=== PATIENT | female | born 1950 | race Caucasian/White ===

== ENCOUNTER 2016-08-04 09:05 | Inpatient (IN) ==
--- NOTE | 2016-08-03 16:26 | Discharge Summary ---
<Kim Chamberlain - Last Filed: 08/03/16 16:24> Date of Encounter: 08/03/16 - Discharge Diagnosis (1) Arthritis of right hip Priority: Primary Status: Chronic (2) Hypertension Priority: Secondary Status: Chronic Qualifiers: Hypertension type: essential hypertension Qualified Code(s): I10 - Essential (primary) hypertension (3) Anxiety Priority: Secondary Status: Chronic - Discharge Medications Home Medications: ALPRAZolam [Xanax 1 MG Tablet] 1 mg PO HS PRN #5 tablet 08/04/16 [Rx] Aspirin Enteric Coated [Aspirin EC] 325 mg PO DAILY #21 tablet. 08/04/16 [Rx] Cholecalciferol (D-3) [Vitamin D] 1,000 unit PO DAILY 08/04/16 [History] Cyanocobalamin (Vitamin B-12) [Vitamin B-12] 1,000 mcg SL DAILY 08/04/16 [ History] Gabapentin [Neurontin] 300 mg PO HS #5 capsule 08/04/16 [Rx] Gluc/Juan-MSM#1/C/Michele/Quentin/Bor [Osteo Bi-Flex Caplet] 1 each PO DAILY 08/04/16 [ History] OxyCODONE Immed Rel [Roxicodone 5 MG] 5 - 10 mg PO Q6HR PRN #40 tablet 08/04/16 [Rx] Ubidecarenone [Co Q-10] 100 mg PO DAILY 08/04/16 [History] amLODIPine [Norvasc] 5 mg PO DAILY 08/04/16 [History] hydroCHLOROthiazide [Hydrochlorothiazide] 12.5 mg PO DAILY 08/04/16 [History] Allergies/Adverse Reactions: Allergies No Known Allergies Allergy (Verified 08/04/16 09:34) Primary care physician: Olga Lidia Orozco CNP - Patient Status Disposition: Transfer Inpatient Rehab Fac Condition: Good - Discharge Instructions Follow Up With: Olga Lidia Orozco CNP [Primary Care Provider] - Kim Chamberlain PAC [Physician Solutions Architect] - 08/17/16 1:40 pm Additional Instructions: Discharge Instructions: Total Hip Replacement Please call [facility] ([phone]), your Primary Care Physician, or report to the Emergency Room if you have any of the following symptoms: Nausea, vomiting, fever greater that 101.5, swelling, chest pain, shortness of breath, increased pain/redness/drainage/odor for your incision site, numbness/ tingling, or any other concerning symptoms. ACTIVITY:Weight-bearing as tolerated for 8 weeks with hip dislocation precautions that physical therapy taught you. You may progress as tolerated under the guidance of your physical therapist. You do not need to sleep with a pillow between your legs. You can also seep on the operative side or on your stomach. MEDICATIONS: Upon discharge resume your home medications. Take all the medications as prescribed. Take a stool softener if taking narcotic pain medications. Stool softeners are only effective if you drink enough fluids. Drink 6-8 glass of water or fluids a day, unless this is not allowed for another health problem. Despite using stool softeners, if you haven't had a bowel movement in 3 days, please switch to a gentle laxative. Gentle laxatives are sold over the counter. You should have a bowel movement within 24 hours, if not call the office. You will be discharged from the hospital with a prescription for pain medication. You are encouraged to decrease the use of narcotic pain medication as tolerated. Should you require a refill, please call the office. [facility] prescribes narcotic pain medication for only 4-6 weeks after surgery. If you require pain medication beyond this time period, you may be referred to your Primary Care Physician or to the Pain Clinic for further evaluation. Plan ahead for refills on pain medication as many narcotics either need to be picked up at the office or mailed. It is best to call 48-72 hours in advance of needing a prescription refill so you don't run out of medication. To help control the post-operative pain, you may take NSAIDs (Aleve,Advil, Motrin, ibuprofen, naprosyn) or Tylenol as prescribed on the bottle in addition to the pain medication. ANTICOAGULATION (blood thinners): Continue your Aspirin, Lovenox or Coumadin as prescribed to help prevent a blood clot in the leg or in the lungs. As long as your incision remains dry and you tolerate the NSAIDs (Aleve, Advil, Motrin, Ibuprofen, Naprosyn), it is OK to use the NSAIDS while you are taking your anticoagulation medication. Should your incision start to drain, stop the NSAID and contact our office. Common symptoms of blood clot in the legs include: localized pain, swelling, calf tenderness, redness or discoloration of the skin. Blood clot in the lung symptoms include: shortness of breath, rapid pulse, sweating, and chest pain that worsens with deep breathing, coughing up blood, lightheadedness, feelings of anxiety. If you experience any of these symptoms notify your physician immediately, go to the emergency room, or if having trouble breathing, call 911. WOUND CARE: Leave the dressing on for 7 to 10days. You may change the dressing if it is saturated greater than 50%. Do not get the dressing wet at anytime. Wash your hands with antibacterial soap, rinse and dry prior to any wound care. If you have lasha the visiting nurse or rehab facility can remove the stapes 10-14 days after surgery and place steri-strips across the wound. Leave the steri-strips in place until they fall off on their own. You may let water from the shower run on top of the steri-strips. If you do not have a visiting nurse or rehab facility, you will need to return to the office at 10-14 days for the lasha to be removed. If you have itching or redness around the dressing call the office. FOLLOW-UP: Please follow up with your surgeon in the orthopedic clinic in 6 weeks from the day of surgery. If you have lasha that need to be removed, you will need to come back to the office in 10-14 days from the day of surgery. - Hospital Course Hospital course: Ms. Salas is a 66 year old female - Time Spent with Patient Total time spent providing and/or coordinating discharge services: <Love Rodgers - Last Filed: 08/04/16 10:09> Date of Encounter: 08/04/16 Primary care physician: Olga Lidia Orozco CNP - Hospital Course Hospital course: Ms. Salas is a 66 year old female - Time Spent with Patient Total time spent providing and/or coordinating discharge services: <Amadeo Trammell - Last Filed: 08/09/16 16:59> Date of Encounter: 08/09/16 Time of Encounter: 16:58 - Discharge Diagnosis (1) Arthritis of right hip Priority: Primary Status: Chronic (2) Hypertension Priority: Secondary Status: Chronic Qualifiers: Hypertension type: essential hypertension Qualified Code(s): I10 - Essential (primary) hypertension (3) Anxiety Priority: Secondary Status: Chronic (4) Acute blood loss anemia Priority: Primary Status: Acute (5) Status post total hip replacement, right Priority: Primary Status: Acute Primary care physician: Olga Lidia Orozco CNP - Patient Status Functional capacity at discharge: uses cane/walker Overall status at discharge: patient is back to baseline - Hospital Course Hospital course: Ms. Salas is a 66 year old female Status post total hip replacement postoperative acute blood loss anemia requiring transfusion patient received antibiotics physical therapy discharge stable condition to ECF - Time Spent with Patient Total time spent providing and/or coordinating discharge services:
[2016-08-04] MEDS ORDERED: CeFAZolin Pre 2,000 MG/100 ML 2,000 MG/100 ML BAG IVPB ONE (09:24)
[2016-08-04] MEDS ORDERED: Ringers Solution, Lactated 1,000 ML IVC SCH ×2 (09:30→13:30)
--- NOTE | 2016-08-04 09:31 | History & Physical Report ---
Date of Encounter: 08/04/16 Time of Encounter: 09:31 24 Hour HP Update - Instructions Instructions: If the History and Physical is less than 30 days old and was completed prior to A.M. admission and or procedure and has NOT been updated on calendar day of procedure please complete this update prior to performing procedure. - Update Patient reports changes in Medical Condition: No Changes in examination, assessment, or condition: No Changes in Medication: No Preop tests/diagnostics Reviewed: Yes Surgery Remains Indicated: Yes Consent for Planned Operative Procedure(s) Verified: Yes - Pre-Operative Checklist Preoperative Checklist Indicated: No Prophylactic Antibiotic Ordered: Yes Is VTE Prophylaxis Indicated?: Yes
--- NOTE | 2016-08-04 10:04 | Anesthesia Evaluation PreOp ---
Date of Encounter: 08/04/16 Time of Encounter: 10:02 - Past History Planned Operation: r vimal Cardiac History: HTN Pulmonary History: Asthma (rare) LIME TRIMMER History: Other (anxiety, sciatica rle) Other Medical History: Denies Any Significant HX Anesthesia History: No Prior Anesthetic Complications, Past Anesthesia ( hysterect, bladder) Alcohol Use: occasionally Drug use: none Medications and Allergies ALPRAZolam [Xanax 1 MG Tablet] 1 mg PO HS PRN 08/04/16 [History] Cholecalciferol (D-3) [Vitamin D] 1,000 unit PO DAILY 08/04/16 [History] Cyanocobalamin (Vitamin B-12) [Vitamin B-12] 1,000 mcg SL DAILY 08/04/16 [ History] Gabapentin [Neurontin] 300 mg PO HS 08/04/16 [History] Gluc/Juan-MSM#1/C/Michele/Quentin/Bor [Osteo Bi-Flex Caplet] 1 each PO DAILY 08/04/16 [ History] Tramadol HCl [Ultram] 50 mg PO QID PRN 08/04/16 [History] Ubidecarenone [Co Q-10] 100 mg PO DAILY 08/04/16 [History] amLODIPine [Norvasc] 5 mg PO DAILY 08/04/16 [History] hydroCHLOROthiazide [Hydrochlorothiazide] 12.5 mg PO DAILY 08/04/16 [History] Allergies No Known Allergies Allergy (Verified 08/04/16 09:34) - Meds/Allergy Pre-op Review Medications Reviewed: Yes Allergies Reviewed: Yes Beta Blockers on Current Med List: No Anesthesia Results - Labs Laboratory Tests 07/28/16 07/28/16 07/28/16 11:04 11:04 11:04 Hgb 14.1 Hct 41.3 Plt Count 411 H PT 10.2 INR 1.0 APTT 31.5 Sodium 141 Potassium 4.1 Creatinine 0.76 - Imaging EKG: report reviewed (nsr) Anesthesia Exam O2 Sat Height 1.6 m Height 1.6 m Height 1.6 m Weight 61.689 kg Weight 61.689 kg Weight 61.689 kg O2 Sat by Pulse Oximetry 99 Vital Signs Temp Pulse Resp BP Pulse Ox 98.2 F 71 18 132/59 99 08/04/16 09:41 08/04/16 09:41 08/04/16 09:41 08/04/16 09:41 08/04/16 09:41 Height: 1.6 Weight: 62 NPO (# of Hours): >8 - HEENT Pupil (Motor): Pupils equal, EOMI Mallampati: II Teeth: Poor dentition Oral Opening: Greater than 3 - LIME TRIMMER LOC: Oriented LIME TRIMMER Motor: Normal RUE, Normal LUE, Normal RLE, Normal LLE, Normal Face LIME TRIMMER Sensory: Normal: RUE, LUE, RLE, LLE, Face - Cardiac Rhythm: Regular Murmur: None - Pulmonary Breath Sounds: bilateral Clear Respiratory Effort: Symmetrical Anesthesia Assess/Plan ASA Score: 2 Modified Denver Scale for Level of Consciousness: Cooperative, oriented, and tranquil Anesthetic Plan: General, Regional Monitoring Plan: Standard Monitors Recovery Plan: PACU
[2016-08-04] MEDS ORDERED: CloNIDine Patch 0.1 MG PATCH (WEEKLY) TD ONE (10:15)
[2016-08-04] MEDS ORDERED: *HR* Midazolam HCl 2 MG/2 ML VIAL ONE (11:42)
[2016-08-04] MEDS ORDERED: Lidocaine -MPF 2% 2 ML VIAL ONE (11:42)
[2016-08-04] MEDS ORDERED: *HR* Propofol 200 MG/20 ML VIAL IVP ONE (11:42)
[2016-08-04] MEDS ORDERED: *HR* FentaNYL (PF) 100 MCG/2 ML VIAL ONE ×2 (11:42→14:16)
[2016-08-04] MEDS ORDERED: Bupivacaine/Clonidine Syringe 1 EACH SYRINGE ONE (12:52)
[2016-08-04] MEDS ORDERED: Ondansetron 4 MG/2 ML VIAL ONE (13:15)
[2016-08-04] MEDS ORDERED: Dexamethasone 4 MG/ML VIAL ONE (13:15)
--- NOTE | 2016-08-04 13:16 | Anesthesia Procedures ---
Date of Encounter: 08/04/16 Time of Encounter: 13:14 Procedures: Anesthesia - Nerve Block Procedure Date: 08/04/16 Time: 13:15 Allergies/Adv Reactions: nkda Pre-op Diagnosis: r hip oa Surgical Procedure: r vimal Checklist: Correct Patient Identifier, Correct procedure, History checked Correct side: Right Blood Thinner: No Monitor Applied: EKG, BP, Pulse Oximetry Supplemental Oxygen via Nasal Cannula (L/min): 2 Indication: Post Op Analgesia Pre-op Neuro Deficits: No Block Type: Other (fascia iliaca placed post indn) Catheter placed: No Sterile Technique: Yes Ultrasound used: No Anatomy identified: No Visual spread of Local: No Neuro Stimulation: No Blood on Needle Aspiration: No Smooth Injection of Local: Yes Pain with Injection of Local: No Prep: Chlorhexadine Needle: 22 x 50 mm Stimuplex Local: 0.25% Bupivicaine w/Clonidine 20 mcg/cc Volume (cc): 40 Number of Attempts: 1 Complications: None/effective block Vitals: see or note
[2016-08-04] MEDS ORDERED: Albuterol 2.5 MG/3 ML NEBULIZER IH ONE (13:17)
[2016-08-04] MEDS ORDERED: *HR* Labetalol 20 MG/4 ML SYRINGE IVP PRN (13:17)
[2016-08-04] MEDS ORDERED: *HR* Meperidine 25 MG/ML SYRINGE IVP PRN (13:17)
[2016-08-04] MEDS ORDERED: Ondansetron 4 MG/2 ML VIAL IVP ONE (13:17)
[2016-08-04] MEDS ORDERED: Naloxone 0.4 MG/ML INJ IVP PRN ×2 (13:17→15:39)
[2016-08-04] MEDS ORDERED: *HR* HYDROmorphone 2 MG/ML SYRINGE ONE (13:25)
--- NOTE | 2016-08-04 13:53 | Orthopedic Operative Note ---
Date of procedure: 08/04/16 Pre-op diagnosis: Right hip arthritis Post-op diagnosis: same Procedure: Procedure: Right Total Hip Replacment Estimated blood loss: 200 cc Hardware: Metal and polyethylene replacement. Biomet DM Cup: 52 G7 fin cup Femoral 10 size echo full profile lateralized stem Head: +6 head with Yue Procedural Notes: Grade 4 arthritic changes femoral head with deformity grade 4 arthritic changes acetabular socket. Operative procedure: The patient was brought to the operating room and placed on the operating room table. After general anesthesia was administered the patient was placed in the lateral decubitus position with the operative leg up. All pressure points were padded appropriately and the head was stabilized in the neutral position. The operative extremity was prepped and draped in the sterile surgical fashion patient received IV antibiotic prior to skin incision. A standard posterior approach is made to the operative hip, the incision was made through the skin and subcutaneous tissue hemostasis was obtained with Bovie cautery. Using careful sharp dissection the fascia was identified and incised exposing the external rotators. The external rotators were released off the greater trochanter and tagged with #2 FiberWire suture. The capsule was T'd open and the hip was brought into internal rotation. Patient noted to have grade 4 arthritic changes femoral head with deformity. The femoral neck cut was made at the appropriate level. An anterior capsulotomy was performed for the anterior retractor. Soft tissues removed from the acetabulum. Patient noted to have grade 4 arthritic changes acetabulum. Acetabulum was first reamed medially, and then reamed in 15 degrees of anteversion and 45 degrees off the horizontal. It was reamed up to the appropriate size 52 The appropriate-sized 52 acetabular cup was impacted in place in 15 degrees of anteversion and 45 degrees off the horizontal. This had good fit and fixation. The hip was brought back in to internal rotation and prepared with the call box wirer followed by the canal finder followed by broaching process in 20 degrees anteversion. It was broached up to the appropriate size 10 The femoral implant was impacted in place in 20 degrees of anteversion. Trial reduction found the hip to be stable with +6 head and Yue. The trials were removed and the real implants were impacted in place. The hip was reduced, patient had apparent equal leg lengths. The hip had excellent stability with forward flexion to 90 degrees adduction of 30 degrees and internal rotation of 60 degrees. The hip had no shuck. The hips after 2 minutes with a Betadine saline solution. It was irrigated out with 2 L of pulse irrigation. The external rotators were reattached to drill holes in the greater trochanter. Love caballero the PA closed the hip. The tensor fascia was closed with running #2 PDS suture the subcutaneous tissue was irrigated and closed deep with #1 PDS suture superficially with 0 PDS suture skin was closed with skin lasha. Patient was placed in a sterile dressing abduction pillow extubated transferred to recovery room stable condition. Anesthesia: GETA Surgeon: Amadeo Trammell Condition: stable Disposition: PACU
[2016-08-04] MEDS: *HR* HYDROmorphone (PF) 1 MG/ML SYRINGE IVP PRN ×6 (14:23→23:27)
--- NOTE | 2016-08-04 14:27 | Physician Discharge Referral ---
ExtendedCare Referral Info Transfer To: [facility] Provider in Charge: Provider in Charge after Transfer: PCP Institutional Level of Care: Skilled - Diagnosis (1) Status post total hip replacement, right Priority: Primary Status: Acute (2) Arthritis of right hip Priority: Primary Status: Chronic (3) Hypertension Priority: Secondary Status: Chronic (4) Anxiety Priority: Secondary Status: Chronic Expected Duration of Placement: 30 days Prognosis: Good Aware of Diagnosis: Patient Aware of Prognosis: Patient - Transfer Medications Prescriptions: OxyCODONE Immed Rel [Roxicodone 5 MG] 5 - 10 mg PO Q6HR PRN #40 tablet PRN Reason: Pain ALPRAZolam [Xanax 1 MG Tablet] 1 mg PO HS PRN #5 tablet PRN Reason: Sleep Aspirin Enteric Coated [Aspirin EC] 325 mg PO DAILY #21 tablet. Gabapentin [Neurontin] 300 mg PO HS #5 capsule Home Medications: ALPRAZolam [Xanax 1 MG Tablet] 1 mg PO HS PRN #5 tablet 08/04/16 [Rx] Aspirin Enteric Coated [Aspirin EC] 325 mg PO DAILY #21 tablet. 08/04/16 [Rx] Cholecalciferol (D-3) [Vitamin D] 1,000 unit PO DAILY 08/04/16 [History] Cyanocobalamin (Vitamin B-12) [Vitamin B-12] 1,000 mcg SL DAILY 08/04/16 [ History] Gabapentin [Neurontin] 300 mg PO HS #5 capsule 08/04/16 [Rx] Gluc/Juan-MSM#1/C/Michele/Quentin/Bor [Osteo Bi-Flex Caplet] 1 each PO DAILY 08/04/16 [ History] OxyCODONE Immed Rel [Roxicodone 5 MG] 5 - 10 mg PO Q6HR PRN #40 tablet 08/04/16 [Rx] Ubidecarenone [Co Q-10] 100 mg PO DAILY 08/04/16 [History] amLODIPine [Norvasc] 5 mg PO DAILY 08/04/16 [History] hydroCHLOROthiazide [Hydrochlorothiazide] 12.5 mg PO DAILY 08/04/16 [History] Allergies/Adverse Reactions: Allergies No Known Allergies Allergy (Verified 08/04/16 09:34) - Respiratory Orders None Smoking Cessation: Smoking cessation has been advised. For more information, call the [place] Tobacco Quit Line at 4-512-PZQJ-NOW. - Ancillary Orders May use pressure relief devices daily prn, May go on BRISEIDA w/family/respon democrat w /meds at nurse discretion PRN, May consult with Dentist, Armature Straightener, Fire Observer PRN - Mobility Orders Ambulate - Rehabiliation Orders Rehab Potential: Good Rehab Orders: ROM Exercises, Evaluation for Physical Therapy, Evaluation for Occupational Therapy Other: PT: Hip Precautions x 6 weeks Apply ICE 3-6x/day for 20 minutes at a time. Encourage ambulation throughout the day and incentive spirometer 10x/hour. Elevate affected extremity above heart as tolerated. Brace: Abduction brace when in bed for 6 weeks. - Treatments List/Other: Right Hip: Opsite dressing, leave intact until first post-operative visit. If dressing becomes >50% saturated, contact office, remove dressing and place appropriate dressing in its place. Do not allow for dressing to get wet. [place] in place. - Diet Orders Regular CERTIFICATION: I certify that the transfer of the above named patient to an Extended Care Facility is necessary for the continuing treatment of the diagnosis listed. The above information is true and accurate reflection of patient's current condition. Confidential - Redisclosure prohibited without a patient's written consent.
[2016-08-04] MEDS ORDERED: *HR* HYDROmorphone (PF) 1 MG/ML SYRINGE IVP PRN (15:10)
[2016-08-04 15:17] LABS: Hematocrit 37.8 % (35.3-44.9); Hemoglobin 12.9 g/dL (11.5-15.4)
[2016-08-04] MEDS ORDERED: MOM Conc 10 ML UD.LIQ PO PRN (15:39)
[2016-08-04] MEDS ORDERED: *HR* OxyCODONE Immed Rel 5 MG TABLET PO PRN (15:39)
[2016-08-04] MEDS ORDERED: Temazepam 15 MG CAPSULE PO PRN (15:39)
[2016-08-04] MEDS ORDERED: Sennosides 8.6 MG TABLET PO PRN (15:39)
[2016-08-04] MEDS ORDERED: ceFAZolin 2,000 MG in D5% in Water 100 ML IVPB SCH (16:00)
[2016-08-04] MEDS: Ringers Solution, Lactated 1,000 ML IVC SCH ×2 (16:01→23:28)
[2016-08-04] MEDS: Ascorbic Acid 500 MG TABLET PO SCH (16:10)
[2016-08-04] MEDS: *HR* OxyCODONE Immed Rel 5 MG TABLET PO PRN ×2 (17:00→21:35)
[2016-08-04] MEDS: *HR* Enoxaparin 30 MG/0.3 ML SYRINGE SQ SCH (17:00)
[2016-08-04] MEDS ORDERED: *HR* Enoxaparin 30 MG/0.3 ML SYRINGE SQ SCH (18:00)
[2016-08-04] MEDS: ceFAZolin 2,000 MG in D5% in Water 100 ML IVPB SCH (23:39)
[2016-08-05] MEDS: *HR* OxyCODONE Immed Rel 5 MG TABLET PO PRN ×4 (04:04→16:24)
[2016-08-05 05:15] LABS: Hemoglobin 9.5 g/dL (11.5-15.4)
[2016-08-05 05:27] LABS: BUN/Creatinine Ratio 9 (6-26); Blood Urea Nitrogen 6 mg/dL (7-20); Calcium 8.4 mg/dL (8.6-10.8); Carbon Dioxide 28 mEq/L (19-29); Chloride 105 mEq/L (98-109); Glucose 117 mg/dL (70-99); Osmolality,Calculated 283 (280-300); Potassium 3.8 mEq/L (3.5-4.5); Sodium 137 mEq/L (136-145); eGFR For African Americans > 60 (> 60); eGFR For Non-African Americans > 60 (> 60)
[2016-08-05] MEDS: *HR* Enoxaparin 30 MG/0.3 ML SYRINGE SQ SCH ×2 (06:21→16:24)
[2016-08-05] MEDS: *HR* HYDROmorphone (PF) 1 MG/ML SYRINGE IVP PRN ×3 (06:24→18:34)
[2016-08-05] MEDS: amLODIPine 5 MG TABLET PO SCH (07:45)
[2016-08-05] MEDS: hydroCHLOROthiazide 25 MG TABLET PO SCH (07:45)
[2016-08-05] MEDS: Ubidecarenone [Co Q-10] 100 MG PO SCH (07:46)
[2016-08-05] MEDS: Osteo Bi-Flex Caplet PO SCH (07:46)
--- NOTE | 2016-08-05 07:47 | Orthopedics Progress Note ---
Date of Encounter: 08/05/16 Time of Encounter: 07:47 - Assessment and Plan (1) Arthritis of right hip Current Visit: Yes Status: Chronic (2) Hypertension Current Visit: Yes Status: Chronic Qualifiers: Hypertension type: essential hypertension Qualified Code(s): I10 - Essential (primary) hypertension (3) Anxiety Current Visit: Yes Status: Chronic (4) Acute blood loss anemia Current Visit: Yes Status: Acute (5) Status post total hip replacement, right Current Visit: Yes Status: Acute Subjective Interval history: Patient was seen this morning doing well without complaints. Afebrile vital signs stable. Operative extremity: Neurovascularly intact Dressing clean dry and intact Calves nontender Assessment and plan: Continue with postoperative care Hemoglobin 9.5 plan for discharge to extended care facility when approved Objective Vital signs: Vital Signs Temp Pulse Resp BP Pulse Ox 08/05/16 06:54 98.1 F 70 17 102/64 96 08/05/16 03:46 98.5 F 74 17 107/55 93 08/04/16 23:15 98.2 F 70 18 109/64 97 08/04/16 18:48 98.0 F 66 15 110/65 95 08/04/16 17:57 98.5 F 73 16 102/65 95 08/04/16 16:57 97.7 F 74 16 118/72 98 08/04/16 16:24 99.1 F 73 16 106/65 94 08/04/16 15:52 98.7 F 92 16 117/76 94 08/04/16 15:28 97.8 F 84 16 154/78 100 08/04/16 15:18 97.8 F 69 16 141/73 100 08/04/16 15:08 68 20 153/66 100 08/04/16 14:58 69 20 105/79 100 08/04/16 14:48 98.5 F 71 20 147/100 98 08/04/16 14:38 71 20 138/65 100 08/04/16 14:28 68 20 141/86 100 08/04/16 14:18 97.2 F L 65 16 162/92 100 08/04/16 09:41 98.2 F 71 18 132/59 99 Intake and Output 08/04/16 08/04/16 08/05/16 15:59 23:59 07:59 Intake Total 100 / 100 1650 / 1650 100 / 100 Output Total 200 / 200 400 / 400 Balance -100 / -100 1250 / 1250 100 / 100 Intake: IV Fluids 100 / 100 1000 / 1000 100 / 100 Lactated Ringers 1,000 ML 1000 / 1000 @ 75 mls/hr IVC .[id number] [facility] Rx#:[id number] Ancef Premix 2,000 MG/100 100 / 100 ML 2,000 mg In 100 ml @ 200 mls/hr IVPB PREOP ONE Rx#:[id number] Ancef 2,000 MG In 100 / 100 Dextrose 5% 100 ML @ 200 mls/hr IVPB Q8H [facility] Rx#: [id number] Oral 0 / 0 650 / 650 Output: Urine 400 / 400 Estimated Blood Loss 200 / 200 Other: Weight 61.689 kg - Labs CBC & BMP: 08/05/16 04:46 08/05/16 04:46 Labs: Abnormal lab results Hgb 9.5 g/dL (11.5-15.4) L D 08/05/16 04:46 Hct 28.0 % (35.3-44.9) L 08/05/16 04:46 BUN 6 mg/dL (7-20) L 08/05/16 04:46 Glucose 117 mg/dL (70-99) H 08/05/16 04:46 Calcium 8.4 mg/dL (8.6-10.8) L 08/05/16 04:46 - VTE Documentation of Mechanical Device: Venous foot pump, device Consult Discharge Plan - Plan Referrals: Kim Chamberlain, PAC [Physician Remittance Clerk] - 08/17/16 1:40 pm Olga Lidia Orozco, WREATH MAKER [Primary Care Provider] -
[2016-08-05] MEDS: Multivit/Ca/Min/Fe/FA 1 TAB TABLET PO SCH (07:49)
[2016-08-05] MEDS: Ascorbic Acid 500 MG TABLET PO SCH ×2 (07:49→16:24)
[2016-08-05] MEDS: Cholecalciferol (D-3) 1,000 UNIT TABLET PO SCH (07:49)
[2016-08-05] MEDS: ceFAZolin 2,000 MG in D5% in Water 100 ML IVPB SCH (07:51)
[2016-08-05] MEDS ORDERED: CYANOCOBALAMIN 1000 MG SL SCH (09:00)
[2016-08-05] MEDS: Ondansetron 4 MG/2 ML VIAL IVP PRN ×2 (13:26→18:33)
[2016-08-05] MEDS ORDERED: *HR* Promethazine 25 MG/ML VIAL IM PRN (19:55)
[2016-08-05] MEDS: Cyanocobalamin (B-12) 1,000 MCG TABLET PO SCH (20:11)
[2016-08-06] MEDS: *HR* OxyCODONE Immed Rel 5 MG TABLET PO PRN ×3 (00:24→15:18)
[2016-08-06 01:49] LABS: Hematocrit 24.9 % (35.3-44.9); Hemoglobin 8.5 g/dL (11.5-15.4)
[2016-08-06 02:03] LABS: BUN/Creatinine Ratio 8 (6-26); Calcium 8.1 mg/dL (8.6-10.8); Carbon Dioxide 26 mEq/L (19-29); Chloride 103 mEq/L (98-109); Glucose 120 mg/dL (70-99); Osmolality,Calculated 276 (280-300); Potassium 3.5 mEq/L (3.5-4.5); Sodium 134 mEq/L (136-145); eGFR For African Americans > 60 (> 60); eGFR For Non-African Americans > 60 (> 60)
[2016-08-06 02:07] LABS: Blood Urea Nitrogen 5 mg/dL (7-20)
[2016-08-06] MEDS: *HR* Enoxaparin 30 MG/0.3 ML SYRINGE SQ SCH ×2 (06:20→17:21)
[2016-08-06] MEDS: *HR* HYDROmorphone (PF) 1 MG/ML SYRINGE IVP PRN ×3 (06:20→21:27)
[2016-08-06] MEDS: Ascorbic Acid 500 MG TABLET PO SCH ×2 (07:48→17:21)
[2016-08-06] MEDS: Multivit/Ca/Min/Fe/FA 1 TAB TABLET PO SCH (07:48)
[2016-08-06] MEDS: Cholecalciferol (D-3) 1,000 UNIT TABLET PO SCH (07:48)
[2016-08-06] MEDS: Cyanocobalamin (B-12) 1,000 MCG TABLET PO SCH (07:48)
[2016-08-06] MEDS: hydroCHLOROthiazide 25 MG TABLET PO SCH (07:49)
[2016-08-06] MEDS: Osteo Bi-Flex Caplet PO SCH (07:49)
[2016-08-06] MEDS: amLODIPine 5 MG TABLET PO SCH (07:49)
[2016-08-06] MEDS: Ubidecarenone [Co Q-10] 100 MG PO SCH (07:49)
--- NOTE | 2016-08-06 12:47 | Orthopedics Progress Note ---
Date of Encounter: 08/06/16 Time of Encounter: 07:45 - Assessment and Plan (1) Status post total hip replacement, right Current Visit: Yes Status: Acute Patient was seen this morning doing well without complaints. Repeat H/H tomorrow. Asymptomatic today. Assessment and plan: Continue with postoperative care . Plan for D/C to ECF Tuesday. (2) Arthritis of right hip Current Visit: Yes Status: Chronic (3) Hypertension Current Visit: Yes Status: Chronic Qualifiers: Hypertension type: essential hypertension Qualified Code(s): I10 - Essential (primary) hypertension (4) Anxiety Current Visit: Yes Status: Chronic Subjective Principal diagnosis: Right THR Interval history: POD#2 - Patient was seen this morning doing well without complaints. Afebrile vital signs stable. Nausea improved. Operative extremity: Neurovascularly intact Dressing clean dry and intact Calves nontender Assessment and plan: Continue with postoperative care H/H 8.5, 24.9 - asymptomatic. Repeat tomorrow. Plan for D/C to ECF Tuesday. Objective Vital signs: Vital Signs Temp Pulse Resp BP Pulse Ox 08/06/16 11:45 98.6 F 77 18 115/64 96 08/06/16 10:50 115/67 08/06/16 07:23 98.3 F 81 16 124/60 95 08/06/16 00:00 100.2 F H 94 17 94/54 94 08/05/16 20:47 99.6 F 78 16 108/55 96 08/05/16 16:08 98.2 F 75 18 106/63 97 Intake and Output 08/05/16 08/06/16 08/06/16 23:59 07:59 15:59 Intake Total 900 / 900 150 / 150 240 / 240 Output Total 600 / 600 400 / 400 150 / 150 Balance 300 / 300 -250 / -250 90 / 90 Intake: Oral 900 / 900 150 / 150 240 / 240 Output: Urine 600 / 600 400 / 400 150 / 150 Other: Meal Breakfast Percent of Meal Consumed 40% # Voids 1 Incision: clean and dry - Labs CBC & BMP: 08/06/16 01:06 08/06/16 01:06 Labs: Abnormal lab results Hgb 8.5 g/dL (11.5-15.4) L 08/06/16 01:06 Hct 24.9 % (35.3-44.9) L 08/06/16 01:06 Sodium 134 mEq/L (136-145) L 08/06/16 01:06 BUN 5 mg/dL (7-20) L 08/06/16 01:06 Glucose 120 mg/dL (70-99) H 08/06/16 01:06 Calculated Osmolality 276 (280-300) L 08/06/16 01:06 Calcium 8.1 mg/dL (8.6-10.8) L 08/06/16 01:06 - VTE Documentation of Mechanical Device: Venous foot pump, device Consult Discharge Plan - Plan Referrals: Kim Chamberlain, PAC [Physician Marketing Segment Manager] - 08/17/16 1:40 pm Olga Lidia Orozco, CHUTE WORKER [Primary Care Provider] -
[2016-08-07] MEDS: *HR* OxyCODONE Immed Rel 5 MG TABLET PO PRN ×2 (02:48→11:20)
[2016-08-07 03:59] LABS: Hematocrit 25.2 % (35.3-44.9); Hemoglobin 8.5 g/dL (11.5-15.4)
[2016-08-07] MEDS: *HR* Enoxaparin 30 MG/0.3 ML SYRINGE SQ SCH (05:19)
[2016-08-07] MEDS: *HR* HYDROmorphone (PF) 1 MG/ML SYRINGE IVP PRN (05:49)
[2016-08-07 07:00] VITALS: BP 118/67
[2016-08-07] MEDS: Cholecalciferol (D-3) 1,000 UNIT TABLET PO SCH (07:57)
[2016-08-07] MEDS: Multivit/Ca/Min/Fe/FA 1 TAB TABLET PO SCH (07:57)
[2016-08-07] MEDS: hydroCHLOROthiazide 25 MG TABLET PO SCH (07:58)
[2016-08-07] MEDS: amLODIPine 5 MG TABLET PO SCH (07:58)
[2016-08-07] MEDS: Cyanocobalamin (B-12) 1,000 MCG TABLET PO SCH (07:58)
[2016-08-07] MEDS: Ascorbic Acid 500 MG TABLET PO SCH (07:59)
--- NOTE | 2016-08-07 10:12 | Orthopedics Progress Note ---
Date of Encounter: 08/07/16 Time of Encounter: 10:11 Subjective Principal diagnosis: Right THR Interval history: POD#3 Patient was seen this morning doing well without complaints. Afebrile vital signs stable. Mild nausea this AM. Operative extremity: Neurovascularly intact Dressing clean dry and intact Calves nontender Assessment and plan: Continue with postoperative care. Plan for D/C to [facility] today when improved. Objective Vital signs: Vital Signs Temp Pulse Resp BP Pulse Ox 08/07/16 06:58 98.7 F 75 16 118/67 98 08/07/16 00:14 99.0 F 71 17 115/65 97 08/06/16 20:58 99.5 F 78 17 117/65 97 08/06/16 16:10 98.1 F 93 16 119/64 96 08/06/16 11:45 98.6 F 77 18 115/64 96 08/06/16 10:50 115/67 Intake and Output 08/06/16 08/07/16 08/07/16 23:59 07:59 15:59 Intake Total 600 / 600 200 / 200 Output Total 300 / 300 Balance 600 / 600 -100 / -100 Intake: Oral 600 / 600 200 / 200 Output: Urine 300 / 300 Other: Meal Dinner Breakfast Percent of Meal Consumed 20% 0% # Voids 1 - Labs CBC & BMP: 08/07/16 03:24 08/06/16 01:06 Labs: Abnormal lab results Hgb 8.5 g/dL (11.5-15.4) L 08/07/16 03:24 Hct 25.2 % (35.3-44.9) L 08/07/16 03:24 Sodium 134 mEq/L (136-145) L 08/06/16 01:06 BUN 5 mg/dL (7-20) L 08/06/16 01:06 Glucose 120 mg/dL (70-99) H 08/06/16 01:06 Calculated Osmolality 276 (280-300) L 08/06/16 01:06 Calcium 8.1 mg/dL (8.6-10.8) L 08/06/16 01:06 - VTE Documentation of Mechanical Device: Venous foot pump, device Consult Discharge Plan - Plan Referrals: Kim Chamberlain, PAC [Physician Radio Interference Investigator] - 08/17/16 1:40 pm Olga Lidia Orozco, INTERNET TECHNOLOGY MANAGER [Primary Care Provider] -
== END 2016-08-07 11:31 ==
LOC: SAMDAY 09:05 → 3NENU 15:52
PROVIDERS: ADMIT Orthopaedic Surgery; ATTEND Orthopaedic Surgery